=== PATIENT | male | born 1960 | race Caucasian/White ===

== ENCOUNTER 2018-03-12 09:33 | Emergency (ER) | payer BC, OTHER ==
[2018-03-12 10:01] LABS: ABS Basophils 0.1 10^3/ul (0-0.2); ABS Eosinophils 0 10^3/ul (0-0.6); ABS Lymphocytes 1.4 10^3/ul (1.0-4.8); ABS Monocytes 0.4 10^3/ul (0-0.8); ABS Neutrophils 9.6 10^3/ul (1.5-7.7); ABS Nucleated RBC 0 10^3/ul; Eosinophil % 0.3 % (0-6); Hematocrit 43 % (42-52); Hemoglobin 14.9 g/dl (14.0-18.0); Lymphocyte % 11.9 % (25-47); Mean Corpuscular HGB Conc 35 g/dl (31-36); Mean Corpuscular Hemoglobin 32 pg (27-31); Mean Corpuscular Volume 91 fL (80-94); Mean Platelet Volume 7.3 um3 (7.4-10.4); Nucleated Red Blood Cells % 0.1; Platelet Count 216 10^3/ul (150-450); Red Blood Count 4.71 10^6/ul (4.00-5.40); Red Cell Distribution Width 13 % (10.5-15); White Blood Count 11.4 10^3/ul (3.5-10.8)
[2018-03-12 10:10] LABS: INR 1.04 (0.77-1.02)
[2018-03-12 10:21] LABS: EGFR Non-African American 91.9 (>60)
[2018-03-12] MEDS ORDERED: Ketorolac INJ* 30 MG/ML 1 ML VIAL IV PUSH ONE (10:42)
--- NOTE | 2018-03-12 11:05 | ED ---
Abdominal Pain/Male - HPI Summary HPI Summary: A 58 y/o male presents to [facility] c/o abd pain that radiates to his lower back since 3 days ago when he lifted his bike. He denies the pain radiating to his leg or belly-button. The pain started as a 10/10 but now is a 7-8/10. He took 1 ibuprofen but states that it did not work. He states that moving worsens his pain. He states that he has an occasional sharp twinge. 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 He says its the first time experiencing this pain. The patient admits he feels dizzy,feels like he has gas, right testicular pain, has mild dysuria and diarrhea and feels like his heart is racing. He denies [place] , syncope, SOB, cold sweats, fever, chills, numbness, tingling, coughing, edema , increased urinary frequency. He smokes 1/2 ppd for over 20 years and drinks 2 beers a week. He has hypothroidism but has no DM or HTN. - History of Current Complaint Chief Complaint: EDAbdPain Stated Complaint: ABD PAIN Time Seen by Provider: 03/12/18 09:38 Hx Obtained From: Patient Onset/Duration: Sudden Onset, Lasting Days, Still Present Severity Initially: Moderate Severity Currently: Moderate Pain Intensity: 8 Pain Scale Used: 0-10 Numeric Location: Discrete At: RLQ Radiates: Yes Radiates to: Back Aggravating Factor(s): Movement Associated Signs And Symptoms: Positive: Dizzy, Urinary Symptoms, Diarrhea - Allergies/Home Medications Allergies/Adverse Reactions: Allergies Allergy/AdvReac Type Severity Reaction Status Date / Time erythromycin base Allergy Unknown Verified 03/12/18 10:41 Reaction Details Home Medications: Home Medications Thyroid,Pork [Coin Machine Service Repairer Thyroid] 30 mg PO DAILY 03/12/18 [History Confirmed 03/12/18] PMH/Surg Hx/FS Hx/Imm Hx Endocrine/Hematology History: Reports: Hx Thyroid Disease Denies: Hx Diabetes Cardiovascular History: Denies: Hx Hypercholesterolemia, Hx Hypertension - Surgical History Surgery Procedure, Year, and Place: none Infectious Disease History: Yes - lyme Infectious Disease History: Denies: Traveled Outside the [place] in Last 30 Days - Family History Known Family History: Positive: Diabetes, Other - RA, lung cancer, lupus - Social History Alcohol Use: Weekly Alcohol Amount: 2 times weekly Substance Use Type: Reports: None Smoking Status (MU): Light Every Day Tobacco Smoker Review of Systems Negative: Fever, Chills, Skin Diaphoresis Positive: Palpitations Negative: Shortness Of Breath, Cough Positive: Diarrhea, Other - Positive: gas Positive: dysuria, other - positive: right testicular pain Negative: Edema Neurological: Other - Positive: dizziness Negative: Headache, Paresthesia, Numbness, Syncope All Other Systems Reviewed And Are Negative: Yes Physical Exam - Summary Physical Exam Summary: Appearance: Well appearing, no pain distress Skin: warm, dry, reflects adequate perfusion Head/face: normal Eyes: EOMI, HAIR ENT: mucous membranes moist Neck: supple, non-tender Respiratory: CTA, breath sounds present Cardiovascular: RRR, pulses symmetrical Abdomen: no CVA tendernes, Abd nontender, no RLQ tenderness, small hernia sac felt in right ingual canal, soft Bowel Sounds: present Musculoskeletal: normal, strength/ROM intact Neuro: normal, sensory motor intact, A&Ox3 Genitourinary: Testicle normal lie, no mass or tenderness Triage Information Reviewed: Yes Vital Signs On Initial Exam: Initial Vitals Temp Pulse Resp BP Pulse Ox 99 F 74 18 185/102 97 03/12/18 09:54 03/12/18 09:54 03/12/18 09:54 03/12/18 09:54 03/12/18 09:54 Vital Signs Reviewed: Yes Diagnostics - Vital Signs Vital Signs Temp Pulse Resp BP Pulse Ox 03/12/18 09:54 99 F 74 18 185/102 97 - Laboratory Lab Results: Lab Results 03/12/18 03/12/18 03/12/18 Range/Units 09:55 09:55 09:55 WBC 11.4 H (3.5-10.8) 10^3/ul RBC 4.71 (4.00-5.40) 10^6/ul Hgb 14.9 (14.0-18.0) g/dl Hct 43 (42-52) % MCV 91 (80-94) fL MCH 32 H (27-31) pg MCHC 35 (31-36) g/dl RDW 13 (10.5-15) % Plt Count 216 (150-450) 10^3/ul MPV 7.3 L (7.4-10.4) um3 Neut % (Auto) 84.0 H (38-83) % Lymph % (Auto) 11.9 L (25-47) % [place] % (Auto) 3.1 (0-7) % Eos % (Auto) 0.3 (0-6) % Baso % (Auto) 0.7 (0-2) % Absolute Neuts (auto) 9.6 H (1.5-7.7) 10^3/ul Absolute Lymphs (auto) 1.4 (1.0-4.8) 10^3/ul Absolute Monos (auto) 0.4 (0-0.8) 10^3/ul Absolute Eos (auto) 0 (0-0.6) 10^3/ul Absolute Basos (auto) 0.1 (0-0.2) 10^3/ul Absolute Nucleated RBC 0 10^3/ul Nucleated RBC % 0.1 INR (Anticoag Therapy) 1.04 H (0.77-1.02) Sodium 139 (135-145) mmol/L Potassium 3.8 (3.5-5.0) mmol/L Chloride 107 (101-111) mmol/L Carbon Dioxide 26 (22-32) mmol/L Anion Gap 6 (2-11) mmol/L BUN 12 (6-24) mg/dL Creatinine 0.85 (0.67-1.17) mg/dL Est GFR ( Amer) 111.3 (>60) Est GFR (Non-Af Amer) 91.9 (>60) BUN/Creatinine Ratio 14.1 (8-20) Glucose 112 H (70-100) mg/dL Lactic Acid (0.5-2.0) mmol/L Calcium 9.4 (8.6-10.3) mg/dL Total Bilirubin 0.40 (0.2-1.0) mg/dL AST 21 (13-39) U/L ALT 21 (7-52) U/L Alkaline Phosphatase 64 (34-104) U/L Troponin I 0.00 (<0.04) ng/mL C-Reactive Protein 1.43 (<8.01) mg/L Total Protein 7.1 (6.4-8.9) g/dL Albumin 4.2 (3.2-5.2) g/dL Globulin 2.9 (2-4) g/dL Albumin/Globulin Ratio 1.4 (1-3) Lipase 15 (11.0-82.0) U/L 03/12/18 Range/Units 09:55 WBC (3.5-10.8) 10^3/ul RBC (4.00-5.40) 10^6/ul Hgb (14.0-18.0) g/dl Hct (42-52) % MCV (80-94) fL MCH (27-31) pg MCHC (31-36) g/dl RDW (10.5-15) % Plt Count (150-450) 10^3/ul MPV (7.4-10.4) um3 Neut % (Auto) (38-83) % Lymph % (Auto) (25-47) % [place] % (Auto) (0-7) % Eos % (Auto) (0-6) % Baso % (Auto) (0-2) % Absolute Neuts (auto) (1.5-7.7) 10^3/ul Absolute Lymphs (auto) (1.0-4.8) 10^3/ul Absolute Monos (auto) (0-0.8) 10^3/ul Absolute Eos (auto) (0-0.6) 10^3/ul Absolute Basos (auto) (0-0.2) 10^3/ul Absolute Nucleated RBC 10^3/ul Nucleated RBC % INR (Anticoag Therapy) (0.77-1.02) Sodium (135-145) mmol/L Potassium (3.5-5.0) mmol/L Chloride (101-111) mmol/L Carbon Dioxide (22-32) mmol/L Anion Gap (2-11) mmol/L BUN (6-24) mg/dL Creatinine (0.67-1.17) mg/dL Est GFR ( Amer) (>60) Est GFR (Non-Af Amer) (>60) BUN/Creatinine Ratio (8-20) Glucose (70-100) mg/dL Lactic Acid 1.2 (0.5-2.0) mmol/L Calcium (8.6-10.3) mg/dL Total Bilirubin (0.2-1.0) mg/dL AST (13-39) U/L ALT (7-52) U/L Alkaline Phosphatase (34-104) U/L Troponin I (<0.04) ng/mL C-Reactive Protein (<8.01) mg/L Total Protein (6.4-8.9) g/dL Albumin (3.2-5.2) g/dL Globulin (2-4) g/dL Albumin/Globulin Ratio (1-3) Lipase (11.0-82.0) U/L Result Diagrams: 03/12/18 09:55 03/12/18 09:55 Lab Statement: Any lab studies that have been ordered have been reviewed, and results considered in the medical decision making process. - Ultrasound No standard instances Ultrasound Interpretation: No Acute Changes Ultrasound Interpretation Completed By: Radiologist - Abdominal US: NO SONOGRAPHIC ABNORMALITY IN THE AREA OF CLINICAL ABNORMALITY. This report has been reviewed by the ED physician - EKG 9:54 Cardiac Rate: NL - 71bpm EKG Rhythm: Sinus Rhythm ST Segment: Normal Re-Evaluation - Re-Evaluation First Eval Re-Evaluation Time: 11:32 Change: Improved Comment: Pain is better Second Eval Re-Evaluation Time: 12:00 Change: Improved Comment: Pain is resolved Abdominal Pain Fem Course/Dx - Course Course Of Treatment: Patient with a small hernia only with standing and abdominal straining. Ultrasound confirms that there is no persistent hernia. He has no blood in the urine and nontender right lower quadrant in the abdomen. His pain was, Toradol. He is discharged to follow up with surgery for inguinal hernia. He is instructed to lift less than 20 pounds and will follow- up with his primary care physician as well. - Diagnoses Differential Diagnosis/HQI/PQRI: Appendicitis, Renal Colic, Testicular Torsion, Ureteral Stone, Urinary Tract Infection Provider Diagnoses: Right inguinal hernia Discharge - Sign-Out/Discharge Documenting (check all that apply): Patient Departure - DC - Discharge Plan Condition: Stable Disposition: HOME Prescriptions: Naproxen [Naproxen 500 mg tab] 500 mg PO BID PRN #12 tablet PRN Reason: Pain Patient Education Materials: Inguinal Hernia (ED) Forms: *Work Release Referrals: Chip Robbins MD [Primary Care Provider] - Liu Nguyen MD [Medical Doctor] - Additional Instructions: Ice to the area. Return if unable to reduce swelling, redness/bruising, vomiting, worse, new symptoms or other concerns. Follow up with the surgeon call today for an appointment. Limit heavy lifting. - Billing Disposition and Condition Condition: STABLE Disposition: Home - Attestation Statements Document Initiated by Scribe: Yes Documenting Scribe: Temo Escobar Provider For Whom Brigettee is Documenting (Include Credential): Edison Caro MD Scribe Attestation: I, Temo Escobar, scribed for Edison Caro MD on 03/12/18 at 1516. Scribe Documentation Reviewed: Yes Provider Attestation: The documentation as recorded by the Temo jeronimo accurately reflects the service I personally performed and the decisions made by me, Edison Caro MD
--- NOTE | 2018-03-12 11:29 | RAD ---
HISTORY: R inguinal pain, eval for hernia COMPARISONS: None. TECHNIQUE: Multiple transverse and longitudinal ultrasound images were obtained of the area of clinical abnormality right groin using grayscale imaging. FINDINGS: Normal fatty and muscular tissue is noted. There is no appreciable hernia. The visualized portion of the scrotum is unremarkable. IMPRESSION: NO SONOGRAPHIC ABNORMALITY IN THE AREA OF CLINICAL ABNORMALITY.
[2018-03-12 11:40] LABS: Urine Appearance Clear; Urine Blood 1+ (Negative); Urine Color Yellow; Urine Ketones Negative (Negative); Urine Protein Negative (Negative); Urine Red Blood Cell Trace(0-2/hpf) (Absent); Urine Specific Gravity 1.018 (1.010-1.030); Urine Urobilinogen Negative (Negative); Urine White Blood Cell Absent (Absent)
[2018-03-12 12:15] VITALS: BP 175/96
== END 2018-03-12 12:15 | disposition home or self-care (01) ==
LOC: ED 09:33
DX: K40.90 Unilateral inguinal hernia, without obstruction or gangrene, not specified as recurrent (principal); E03.9 Hypothyroidism, unspecified; Z87.891 Personal history of nicotine dependence; Z88.3 Allergy status to other anti-infective agents
CPT/HCPCS: 36415; 76705; 80053; 81003; 81015; 83605; 83690; 84484; 85025; 85610; 86140; 93005; 96374; 99284; J1885

== ENCOUNTER 2018-11-14 09:33 | Emergency (ER) | payer BC ==
[2018-11-14] MEDS ORDERED: NS 0.9% 1000 ML** 1,000 ML IV ONE (09:46)
[2018-11-14] MEDS ORDERED: Ketorolac INJ* 30 MG/ML 1 ML VIAL IV PUSH ONE (09:47)
--- NOTE | 2018-11-14 10:00 | ED ---
Abdominal Pain/Male - HPI Summary HPI Summary: Pt is 58 y/o male with hypothyroidism presenting with right testicular pain x 5 days that radiates to his right lower back. States he had a similar episode in March 2018 and was diagnosed with small hernia, although no sonographic evidence confirmed. He also notes decreased urine stream, dark urine, and foul- smelling urine x 2 days. States he has been constipated x 5 days. Denies nausea , vomiting, fevers, chills, headache, dizziness, chest pain, cough. - History of Current Complaint Chief Complaint: EDAbdPain Stated Complaint: ABD PAIN Time Seen by Provider: 11/14/18 09:42 Hx Obtained From: Patient Onset/Duration: Lasting Days Timing: Constant Severity Initially: Mild Severity Currently: Mild Pain Intensity: 3 Pain Scale Used: 0-10 Numeric Location: Suprapubic - Right Radiates: Yes Radiates to: Back - Right Character: Sharp Aggravating Factor(s): Nothing Alleviating Factor(s): Nothing Associated Signs And Symptoms: Positive: Constipation, Urinary Symptoms. Negative: Fever, Chest Pain, Nausea, Vomiting Similar Episode/Dx As:: Hernia, 03/2018 - Allergies/Home Medications Allergies/Adverse Reactions: Allergies Allergy/AdvReac Type Severity Reaction Status Date / Time erythromycin base Allergy Unknown Verified 11/14/18 09:41 Reaction Details Home Medications: Home Medications Omeprazole 1 cap PO DAILY PRN 11/14/18 [History Confirmed 11/14/18] PMH/Surg Hx/FS Hx/Imm Hx Previously Healthy: No Endocrine/Hematology History: Reports: Hx Thyroid Disease Denies: Hx Diabetes Cardiovascular History: Denies: Hx Hypercholesterolemia, Hx Hypertension - Surgical History Surgery Procedure, Year, and Place: none Infectious Disease History: No Infectious Disease History: Denies: Traveled Outside the [place] in Last 30 Days - Family History Known Family History: Positive: Diabetes, Other - RA, lung cancer, lupus - Social History Alcohol Use: Weekly Alcohol Amount: 2 times weekly Substance Use Type: Reports: None Smoking Status (MU): Light Every Day Tobacco Smoker Review of Systems Negative: Fever, Chills Negative: Chest Pain Negative: Shortness Of Breath, Cough Positive: Abdominal Pain - Right suprapubic, radiates to right low back. Negative: Vomiting, Diarrhea, Nausea Positive: other - dark, foul-smelling urine. decreased stream Negative: Rash Negative: Headache All Other Systems Reviewed And Are Negative: Yes Physical Exam Triage Information Reviewed: Yes Vital Signs On Initial Exam: Initial Vitals Temp Pulse Resp BP Pulse Ox 96.9 F 75 18 167/98 97 11/14/18 09:39 11/14/18 09:39 11/14/18 09:39 11/14/18 09:39 11/14/18 09:39 Vital Signs Reviewed: Yes Appearance: Positive: Well-Appearing, No Pain Distress Skin: Positive: Warm, Skin Color Reflects Adequate Perfusion, Dry Head/Face: Positive: Normal Head/Face Inspection Eyes: Positive: Normal, Conjunctiva Clear ENT: Positive: Normal ENT inspection Respiratory/Lung Sounds: Positive: Clear to Auscultation, Breath Sounds Present. Negative: Rales, Rhonchi, Wheezes Cardiovascular: Positive: RRR. Negative: Murmur, Rub Abdomen Description: Positive: Nontender, Soft, Distended - Pt notes bloating. Negative: CVA Tenderness (R), CVA Tenderness (L), Pulsatile Mass Bowel Sounds: Positive: Hypoactive Male Genital Exam: Positive: No Hernia Musculoskeletal: Positive: Normal, Strength/ROM Intact Neurological: Positive: Normal, Sensory/Motor Intact, Alert, Oriented to Person Place, Time Psychiatric: Positive: Normal Diagnostics - Vital Signs Vital Signs Temp Pulse Resp BP Pulse Ox 11/14/18 09:39 96.9 F 75 18 167/98 97 - Laboratory Lab Results: Laboratory Results - last 24 hr 11/14/18 11/14/18 11/14/18 09:59 09:59 09:59 WBC 9.2 RBC 5.66 H Hgb 17.7 Hct 50 MCV 89 MCH 31 MCHC 35 RDW 14 Plt Count 247 MPV 7.7 Neut % (Auto) 65.2 Lymph % (Auto) 26.5 [place] % (Auto) 7.1 Eos % (Auto) 0.5 Baso % (Auto) 0.7 Absolute Neuts (auto) 6.0 Absolute Lymphs (auto) 2.4 Absolute Monos (auto) 0.7 Absolute Eos (auto) 0.1 Absolute Basos (auto) 0.1 Absolute Nucleated RBC 0.0 Nucleated RBC % 0.0 INR (Anticoag Therapy) 1.27 H Sodium 136 Potassium 3.4 L Chloride 100 L Carbon Dioxide 26 Anion Gap 10 BUN 16 Creatinine 1.07 Est GFR ( Amer) 85.3 Est GFR (Non-Af Amer) 70.5 BUN/Creatinine Ratio 15.0 Glucose 102 H Lactic Acid Calcium 9.8 Total Bilirubin 0.70 AST 27 ALT 25 Alkaline Phosphatase 84 Troponin I 0.01 C-Reactive Protein 1.58 Total Protein 7.9 Albumin 4.6 Globulin 3.3 Albumin/Globulin Ratio 1.4 Lipase < 10 L 11/14/18 09:59 WBC RBC Hgb Hct MCV MCH MCHC RDW Plt Count MPV Neut % (Auto) Lymph % (Auto) [place] % (Auto) Eos % (Auto) Baso % (Auto) Absolute Neuts (auto) Absolute Lymphs (auto) Absolute Monos (auto) Absolute Eos (auto) Absolute Basos (auto) Absolute Nucleated RBC Nucleated RBC % INR (Anticoag Therapy) Sodium Potassium Chloride Carbon Dioxide Anion Gap BUN Creatinine Est GFR ( Amer) Est GFR (Non-Af Amer) BUN/Creatinine Ratio Glucose Lactic Acid 1.6 Calcium Total Bilirubin AST ALT Alkaline Phosphatase Troponin I C-Reactive Protein Total Protein Albumin Globulin Albumin/Globulin Ratio Lipase Result Diagrams: 11/14/18 09:59 11/14/18 09:59 Lab Statement: Any lab studies that have been ordered have been reviewed, and results considered in the medical decision making process. - CT CT abd/pelvis CT Interpretation Completed By: Radiologist Summary of CT Findings: No obstructive uropathy. No hernias. - EKG Time 10:02 Cardiac Rate: NL - Rate 70 EKG Rhythm: Sinus Rhythm ST Segment: Normal Ectopy: None Summary of EKG Findings: Normal axis, normal intervals Abdominal Pain Male Course/Dx - Course Course Of Treatment: 58 y/o male with right lower quadrant and right suprapubic pain, constipation. CT negative for hernia and kidney stones, revealed significant amount of stool, c/w constipation. CBC and CMP WNL. No hernia on exam or palpable discomfort. No pain today. Pt is discharged home to f/u with PCP. - Diagnoses Differential Diagnosis/HQI/PQRI: Appendicitis, Bowel Obstruction, Constipation, Renal Colic, Ureteral Stone, Urinary Tract Infection Provider Diagnoses: Constipation, Right inguinal pain Discharge - Sign-Out/Discharge Documenting (check all that apply): Patient Departure Patient Received Moderate/Deep Sedation with Procedure: No - Discharge Plan Condition: Improved Disposition: HOME Prescriptions: Docusate Sodium [Colace] 100 mg PO BID PRN #20 capsule PRN Reason: Constipation Naproxen [Naproxen 250 mg tab] 250 mg PO BID PRN #20 tablet PRN Reason: Pain Polyethylene Glycol 3350 [Gnp Clearlax] 1 chayo PO TID PRN #12 chayo PRN Reason: Constipation Patient Education Materials: Constipation (ED), High Fiber Diet (ED), Groin Pain (ED) Forms: *Work Release Referrals: Chip Robbins MD [Primary Care Provider] - Additional Instructions: Stay well-hydrated. Avoid lifting greater than 15 pounds for one week. Call today for close follow-up with her doctor. Return if worse, fever, new symptoms or other concerns as discussed. - Billing Disposition and Condition Condition: IMPROVED Disposition: Home - Attestation Statements Document Initiated by Lanny: Yes Documenting Scribe: LUDMILA Greenberg Provider For Whom Lanny is Documenting (Include Credential): Dr. Caro Scribe Attestation: Yamilka More PA-S, scribed for Dr. Caro on 11/14/18 at 1150. Scribe Documentation Reviewed: Yes Provider Attestation: The documentation as recorded by the brynnibYamilka coe PA-S accurately reflects the service I personally performed and the decisions made by Dr. Gordo ellis Status of Scribe Document: Viewed
[2018-11-14 10:08] LABS: ABS Basophils 0.1 10^3/ul (0-0.2); ABS Eosinophils 0.1 10^3/ul (0-0.6); ABS Lymphocytes 2.4 10^3/ul (1.0-4.8); ABS Monocytes 0.7 10^3/ul (0-0.8); Eosinophil % 0.5 %; Hematocrit 50 % (42-52); Hemoglobin 17.7 g/dL (14.0-18.0); Lymphocyte % 26.5 %; Mean Corpuscular HGB Conc 35 g/dL (31-36); Mean Corpuscular Hemoglobin 31 pg (27-31); Mean Corpuscular Volume 89 fL (80-94); Mean Platelet Volume 7.7 fL (7.4-10.4); Platelet Count 247 10^3/uL (150-450); Red Blood Count 5.66 10^6 /uL (4.18-5.48); Red Cell Distribution Width 14 % (10-15); White Blood Count 9.2 10^3/uL (3.5-10.8)
[2018-11-14 10:19] LABS: INR 1.27 (0.82-1.09)
[2018-11-14 10:24] LABS: ALT 25 U/L (7-52); AST 27 U/L (13-39); Albumin 4.6 g/dL (3.2-5.2); Albumin/Globulin Ratio 1.4 (1-3); Alkaline Phosphatase 84 U/L (34-104); Anion Gap 10 mmol/L (2-11); Blood Urea Nitrogen 16 mg/dL (6-24); C Reactive Protein 1.58 mg/L (<8.01); CO2 Carbon Dioxide 26 mmol/L (22-32); Calcium 9.8 mg/dL (8.6-10.3); Chloride 100 mmol/L (101-111); EGFR African American 85.3 (>60); EGFR Non-African American 70.5 (>60); Globulin 3.3 g/dL (2-4); Glucose 102 mg/dL (70-100); Potassium 3.4 mmol/L (3.5-5.0); Sodium 136 mmol/L (135-145); Total Protein 7.9 g/dL (6.4-8.9)
[2018-11-14 10:25] LABS: Troponin I 0.01 ng/mL (<0.04)
[2018-11-14 10:54] VITALS: BP 153/81
== END 2018-11-14 10:54 | disposition home or self-care (01) ==
LOC: ED 09:33
DX: K59.00 Constipation, unspecified (principal); R10.31 Right lower quadrant pain; Z88.1 Allergy status to other antibiotic agents; F17.200 Nicotine dependence, unspecified, uncomplicated
CPT/HCPCS: 36415; 74176; 80053; 83605; 83690; 84484; 85025; 85610; 86140; 93005; 96361; 96374; 99283; J1885

== ENCOUNTER 2024-02-13 05:30 | Inpatient (IN) ==
[~2024-02-13 05:30] MED LIST: Metoclopramide 5 MG/ML VIAL (10 mg) IV PRN; NS 0.45% 1000 ml BAG 1,000 ML IV SCH; Naloxone 0.4 mg VIAL 0.4 mg/ml 1 ml VIAL IV PRN; Ondansetron 4 mg VIAL 2 MG/ML 2 ml VIAL IV PRN; fentaNYL 100 mcg/2 ml 50 MCG/ML VIAL IV PRN
[2024-02-13] MEDS ORDERED: Scopolamine 1 mg/72hr PATCH ONE (06:03)
[2024-02-13] MEDS ORDERED: ceFAZolin 2 GM PREMIX 2 GM/50 ML BAG ONE (06:04)
[2024-02-13] MEDS: Lactated Ringers 1000 ml BAG 1,000 ML IV SCH ×2 (06:17→12:37)
[2024-02-13] MEDS ORDERED: Tranexamic Acid 1 GM/100ML BAG 2,000 MG/200 ML BAG IV ONE (06:20)
[2024-02-13 06:34] LABS: Rapid COVID-19 Molecular Undetected (Undetected)
[2024-02-13] MEDS: Buffered Lidocaine 1% SYRIN 1 ml INTRADERM ONE (06:36)
[2024-02-13] MEDS: Scopolamine 1 mg/72hr PATCH TRANSDERM ONE (06:36)
[2024-02-13] MEDS ORDERED: Midazolam 2 mg/2 ml VIAL 1 mg/ml 2 ml VIAL (2 mg) ONE (07:03)
[2024-02-13] MEDS ORDERED: ROPIVACAINE 5 MG/ML 30 ML BTL (0.5%) ONE (07:26)
[2024-02-13] MEDS ORDERED: Ondansetron 4 mg VIAL 2 MG/ML 2 ml VIAL IV PRN (09:51)
[2024-02-13] MEDS ORDERED: Calcium Carb (TUMS) 500 mg CHEW TAB PO PRN (09:51)
[2024-02-13] MEDS ORDERED: Morphine 2 MG/ML SYRINGE IV PRN (09:51)
[2024-02-13] MEDS ORDERED: Lactulose 30 ml UDC PO PRN (09:51)
[2024-02-13] MEDS ORDERED: Ondansetron ODT 4 mg TAB 4 MG TAB PO PRN (09:51)
[2024-02-13] MEDS ORDERED: Magnesium Hydroxide LIQ 30 ML UDC PO PRN (09:51)
[2024-02-13] MEDS: Acetaminophen IV 1 GM/100ML 1,000 MG/100 ML BAG IV ONE (14:50)
[2024-02-13] MEDS: ceFAZolin 2 GM PREMIX 2 GM/50 ML BAG IV SCH (17:01)
[2024-02-13] MEDS: Magnesium Hydroxide LIQ 30 ML UDC PO SCH (21:11)
[2024-02-14 06:50] LABS: Hematocrit 39.6 % (38-53); Hemoglobin 13.7 g/dL (13.2-16.3); Mean Platelet Volume 8.5 fL (7.5-11.2); Platelet Count 208 10^3/uL (150-450)
[2024-02-14 07:02] LABS: Calcium 8.4 mg/dL (8.6-10.3); Creatinine, Serum 0.95 mg/dL (0.67-1.17); Potassium 3.8 mmol/L (3.5-5.0); eGFR CKD-EPI 88.3 (>60)
[2024-02-14 07:05] VITALS: BP 162/81
[2024-02-14] MEDS: Benzocaine/Menthol LOZ PO PRN (08:05)
[2024-02-14] MEDS: Vitamin THERAPEUTIC TAB PO SCH (08:05)
[2024-02-14] MEDS: Aspirin EC 325 mg TAB.EC PO SCH (08:05)
[2024-02-14] MEDS: Benzocaine/Menthol LOZ ONE (08:10)
== END 2024-02-14 10:50 | disposition home or self-care (01) | DRG 470 ==
LOC: AA 05:30 → INTOOBSV 05:30 → SSU 09:51
PROVIDERS: ADMIT Orthopaedic Surgery Adult Reconstructive Orthopaedic Surgery; ATTEND Orthopaedic Surgery Adult Reconstructive Orthopaedic Surgery